=== PATIENT | female | born 1955 | race African-American/Black ===

== ENCOUNTER 2019-06-06 21:08 | Emergency (ER) | payer MEDICARE ==
[~2019-06-06] VITALS: Ht 157.5 cm; Wt 76.2 kg
[2019-06-07] MEDS ORDERED: methylPREDNISolone SOD SUCC 125 MG/2 ML VL IM ONE
[2019-06-07] MEDS ORDERED: KETOROLAC TROMETH 60MG/2ML VIAL IM ONE
[2019-06-07 00:18] VITALS: BP 186/99
== END 2019-06-07 00:47 | disposition home or self-care (01) ==
LOC: ER 21:27
DX: S33.5XXA Sprain of ligaments of lumbar spine, initial encounter (principal); Z88.8 Allergy status to other drugs, medicaments and biological substances; W01.0XXA Fall on same level from slipping, tripping and stumbling without subsequent striking against object, initial encounter; Y93.89 Activity, other specified; Y92.89 Other specified places as the place of occurrence of the external cause; Y99.8 Other external cause status
CPT/HCPCS: 72100; 96372; 99283; J1885; J2930